=== PATIENT | female | born 1985 | race Caucasian/White ===

== ENCOUNTER 2016-11-04 19:55 | Inpatient (IN) | payer OTHER ==
[~2016-11-04] VITALS: Ht 165.1 cm; Wt 70.3 kg
--- NOTE | ~2016-11-04 | HP ---
Unit #: [id number] #: [id number] Patient: MAL JACK [id number] [place] [address] [id number] I MR#: [id number] NAME: MAL JACK ROOM: [facility]6 Age: 31 Sex: F Admission Date: 11/04/2016 : 1985 Attending Physician: José Antonio Daugherty M.D. Admitting Physician: José Antonio Daugherty M.D. Primary Care Physician: Generic Doctor Not In System HISTORY AND PHYSICAL HISTORY OF PRESENT ILLNESS Mal is a 31 year old admitted to [address] [place] [address] with psychotic behavior. She is religiously preoccupied and believes that she has someone named Osvaldo living in her. PAST MEDICAL HISTORY Nothing significant. PAST SURGICAL HISTORY x2. ALLERGIES No known drug allergies. SOCIAL HISTORY Smokes 1 pack per day. Drinks alcohol on occasion. Admits to snorting OxyContin on occasion and has been using cartom frequently. FAMILY HISTORY Medically noncontributory. REVIEW OF SYSTEMS CONSTITUTIONAL: No fever or chills. HEENT: Denies any sore throat, ear pain or runny nose. CARDIOVASCULAR: Denies chest pain, irregular heart rhythm or palpitations. CHEST: Denies shortness of breath or cough. No hemoptysis. GASTROINTESTINAL: Denies nausea, vomiting, diarrhea or chronic constipation. ENDOCRINE: Denies history of increased thirst or urination. No recent significant weight loss or gain. GENITOURINARY: Denies dysuria, frequency, or hematuria. SKIN: Denies any rashes. HEMATOLOGIC: Denies history of increased bleeding or bruising. MUSCULOSKELETAL: Denies any hot, swollen joints. No generalized muscle pain. NEUROLOGIC: Denies problems with vision or speech. No frequent, severe headaches. No numbness, tingling or weakness in any extremities. Denies loss of bladder or bowel control. CURRENT MEDICATIONS 1. Milk of Magnesia p.r.n. 2. Maalox p.r.n. 3. Tylenol p.r.n. Unit #: [id number] #: [id number] Patient: MAL JACK 4. Nicotine patch 14 mg daily. PHYSICAL EXAMINATION GENERAL: Alert, well-nourished, in no apparent distress. VITAL SIGNS: Blood pressure 110/50, heart rate 94, respirations 16, temperature 98.6. WEIGHT: 155. HEIGHT: 5 feet 5 inches. SKIN: Warm and dry without rash or lesion. HEENT: Normocephalic. TMs not viewed. Oral and nasal passages clear. Conjunctivae clear. PERRLA. EOMs intact. NECK: Supple without lymphadenopathy or thyromegaly. HEART: Regular rate and rhythm without murmur. LUNGS: Clear. ABDOMEN: Soft, nontender. : Not done. EXTREMITIES: No evidence of cyanosis, clubbing or edema. Moves all without focal deficit. NEUROLOGICAL: Grossly within normal limits. Cranial Nerves: II: Visual hassan are intact. III, IV AND : Extraocular movements are intact. Pupils are equal, round and reactive to light. V: Facial sensation is grossly normal. VII: Facial movements and expression are normal. VIII: Auditory acuity grossly intact. IX, X: Uvula is midline. Phonation is normal. XI: Patient shrugs shoulders and turns head normally. XII: Tongue protrudes in the midline. Sensory and Motor Function: Sensory and motor sensation is grossly normal. Motor: moves all extremities well. Coordination: Gait is normal. Deep Tendon Reflexes: Intact. IMPRESSION Psychiatric admission. RECOMMENDATIONS PSYCHIATRIC: Per psychiatrist. MEDICAL: See no contraindication to participate in facility's activities. MEDICAL PROGNOSIS Good. MEDICAL CONDITION Stable. Dictated by... Sherin Multani P.A.-C. for Gretel Serna/sadia TD: 11/05/2016 15:34 JOB #: [id number] Unit #: [id number] #: [id number] Patient: MAL JACK HISTORY AND PHYSICAL Page 1 of 1 X Sherin Multani HISTORY AND PHYSICAL
--- NOTE | ~2016-11-04 | DS ---
Unit #: [id number] #: [id number] [facility] [id number] [facility] [place] [address] [id number] I MR#: [id number] NAME: MAL JACK ROOM: P209 Age: 31 Sex: F Admission Date: 11/04/2016 : 1985 Discharge Date: 11/11/2016 Attending Physician: José Antonio Daugherty M.D. Primary Care Physician: Generic Doctor Not In System DISCHARGE SUMMARY IDENTIFYING DATA Ms. Jack is a 31-year-old single white female with history of mood disorder and psychosis who was brought to the hospital by her family. DISCHARGE DIAGNOSES Psychiatric: Bipolar disorder, most recent episode depressed, recurrent, moderate, with psychosis. Medical: None. Stressors: Moderate psychosocial stressors. HISTORY OF PRESENT ILLNESS Please see initial psychiatric evaluation for details. PAST PSYCHIATRIC HISTORY Please see initial psychiatric evaluation for details. PAST MEDICAL HISTORY Please see initial psychiatric evaluation for details. HOSPITAL COURSE The patient was admitted to the adult psychiatric unit at [facility] renata [facility] and was oriented to the hospital environment. Routine p.r.n. medications were initiated, and she was started back on home medication, Risperdal Klonopin 1 mg twice a day. Meanwhile, she was taking the medications regularly and was tolerating them fairly well and was able to show a decent therapeutic response. ____ depression and psychosis . Will continue treatment on an outpatient . DISCHARGE MEDICATIONS Risperdal 1 mg b.i.d. for depression and psychosis. DISCHARGE CONDITION Stable. PROGNOSIS Fair. Dictated by... José Antonio Daugherty M.D. Unit #: [id number] #: [id number] Patient: MAL JACK IAA/modl TD: 11/20/2016 15:37 JOB #: [id number] DISCHARGE SUMMARY Page 1 of 1 X José Antonio Daugherty MD X DISCHARGE SUMMARY
--- NOTE | ~2016-11-04 | PN ---
Unit #: [id number] #: [id number] Patient: MAL JACK [id number] [facility] [address] [place] [address] [id number] I MR#: [id number] NAME: MAL JACK ROOM: [facility]6 Age: 31 Sex: F Admission Date: 11/04/2016 : 1985 Attending Physician: José Antonio Daugherty M.D. Admitting Physician: José Antonio Daugherty M.D. Primary Care Physician: Generic Doctor Not In System [facility] PROGRESS NOTES DATE 11/06/2016 DISCUSSION Ms. Jack is a 31-year-old white female who was seen today and chart was reviewed and case was discussed with the staff. She had a rough day yesterday with acute psychosis and was yelling and screaming the demons are attacking her and coming out of her body and was showing episode of verbal and physical aggression. Intramuscular injection of antipsychotic had to be given to cut down on her psychosis and to keep her calm. MENTAL STATUS EXAMINATION Young white female who was casually dressed with fair personal hygiene and appears to be in no acute distress or discomfort. She was awake and alert on interaction with intact orientation. Her mood was anxious with congruent affect. Her speech is slow and restricted in content. Her thought processes were disorganized with some looseness of associations and flight of ideas. Her insight and judgement remains significantly impaired. TREATMENT PLAN 1. Will continue on current medications and treatment protocol. Will monitor her response to the medications and make further adjustments as needed. 2. Will continue to follow up. Dictated by... Gretel Morales/sadia TD: 11/06/2016 18:06 JOB #: [id number] Unit #: [id number] #: [id number] Patient: MAL JACK PROGRESS NOTES Page 1 of 1 X José Antonio Daugherty MD PROGRESS NOTE
--- NOTE | ~2016-11-04 | PN ---
Unit #: [id number] #: [id number] Patient: MAL JACK [id number] [facility] [address] [place] [address] [id number] I MR#: [id number] NAME: MAL JACK ROOM: P209 Age: 31 Sex: F Admission Date: 11/04/2016 : 1985 Attending Physician: José Antonio Daugherty M.D. Admitting Physician: José Antonio Daugherty M.D. Primary Care Physician: Kadeem Doctor Not In System [facility] PROGRESS NOTES DATE 11/09/2016 DISCUSSION Ms. Jack is a 31-year-old white female who was seen today and chart was reviewed and case was discussed with the staff. She has been doing fairly well and has been rather calm and cooperative and compliant with treatment recommendations as she has been taking medications and tolerating them fairly well with no reported side effects. MENTAL STATUS EXAMINATION Young white female who was casually dressed with fair personal hygiene, appears to be in no acute distress or discomfort. She was awake and alert on interaction with intact orientation. Her mood was anxious with congruent affect. She denies any suicidal or homicidal ideations. Her insight and judgement remains slightly impaired. TREATMENT PLAN 1. We will continue her on her current medications and treatment protocol. We will monitor her response to the medication and make further adjustments as needed. 2. We will continue to follow up. Dictated by... Gretel Morales/odalis TD: 11/11/2016 03:58 JOB #: [id number] Unit #: [id number] #: [id number] Patient: MAL JACK PROGRESS NOTES Page 1 of 1 X José Antonio Daugherty MD PROGRESS NOTE
--- NOTE | ~2016-11-04 | PN ---
Unit #: [id number] #: [id number] Patient: MAL JACK [id number] [facility] [address] [place] [address] [id number] I MR#: [id number] NAME: MAL JACK ROOM: P122 Age: 31 Sex: F Admission Date: 11/04/2016 : 1985 Attending Physician: José Antonio Daugherty M.D. Admitting Physician: José Antonio Daugherty M.D. Primary Care Physician: Generic Doctor Not In System [facility] PROGRESS NOTES DATE OF SERVICE 11/08/2016 DISCUSSION Ms. Jack is a 31-year-old white female who was seen today. Chart was reviewed and case was discussed with the staff. She has been anxious, withdrawn, and still has been having some persistent hallucinations though her agitation and aggression have been improving as she has been taking the medications on a regular basis. She denies any tolerability issues with the medications. MENTAL STATUS EXAMINATION Young white female who is casually dressed with fair personal hygiene and appears to be in no acute distress or discomfort. She was awake and alert with intact orientation. Her mood is anxious with a congruent affect. She denies any suicidal or homicidal ideations. Her insight and judgment remain slightly impaired. TREATMENT PLAN 1. We will continue her on her current medications and treatment protocol. We will monitor her response to the medications and make further adjustments as needed. 2. We will continue to follow up. Dictated by... José Antonio Daugherty M.D. IAA/bzg TD: 11/08/2016 09:44 JOB #: [id number] Unit #: [id number] #: [id number] Patient: MAL JACK PROGRESS NOTES Page 1 of 1 X José Antonio Daugherty MD X PROGRESS NOTE
--- NOTE | ~2016-11-04 | PN ---
Unit #: [id number] #: [id number] Patient: MAL JACK [id number] [facility] [address] [place] [address] [id number] I MR#: [id number] NAME: MAL JACK ROOM: P122 Age: 31 Sex: F Admission Date: 11/04/2016 : 1985 Attending Physician: José Antonio Daugherty M.D. Admitting Physician: José Antonio Daugherty M.D. Primary Care Physician: Kadeem Doctor Not In System [facility] PROGRESS NOTES DATE OF SERVICE 11/07/2016 DISCUSSION Ms. Jack is a 31-year-old white female who was seen today. Chart was reviewed and case was discussed with the staff. She has been anxious, withdrawn though has not shown any agitation and has had a better day yesterday though still has been exhibiting bizarre behavior with persistent paranoia and delusional behavior though no physical aggression or violent outburst has been reported. She has been taking the medications and tolerating them fairly well with no reported side effects. MENTAL STATUS EXAMINATION Young white female who is casually dressed with fair personal hygiene, appears to be in no acute distress or discomfort. The patient was awake and alert with intact orientation. Her mood is anxious with congruent affect. She denies any suicidal or homicidal ideations. Her thought processes were disorganized with some looseness of associations, paranoid ideations, and delusional behavior. Her insight and judgment remain significantly impaired. TREATMENT PLAN 1. We will continue her on her current medications and treatment protocol. We will monitor her response to the medications and make further adjustments as needed. 2. We will continue to follow up. Dictated by... Gretel Morales/raven TD: 11/07/2016 09:12 JOB #: [id number] Unit #: [id number] #: [id number] Patient: MAL JACK PROGRESS NOTES Page 1 of 1 X José Antonio Daugherty MD PROGRESS NOTE
--- NOTE | ~2016-11-04 | PA ---
Unit #: [id number] #: [id number] Patient: MAL JACK [id number] [place] [address] [id number] I MR#: [id number] NAME: MAL JACK ROOM: P131 Age: 31 Sex: F Admission Date: 11/04/2016 : 1985 Date of Assessment: 11/05/2016 Attending Physician: José Antonio Daugherty M.D. Admitting Physician: José Antonio Daugherty M.D. Primary Care Physician: Generic Doctor Not In System PSYCHIATRIC ASSESSMENT DATE OF SERVICE 11/05/2016. IDENTIFYING DATA Ms. Jack is a 31-year-old single white female, who is a resident of [place], [place], and was self-referred to the hospital on a voluntary basis accompanied by her mother. CHIEF COMPLAINT "I'm hearing voices." HISTORY OF PRESENT ILLNESS Ms. Jack is a 31-year-old white female, who presented to the hospital with mother for stating that she has been hearing voices of a demon and "they respond to my thought processes and I want them out of my body. I'm not afraid to them. I see them all. They all look different. They look like people with white eyes." The patient denies any suicidal or homicidal ideation. The patient reports acute psychosis with auditory and visual hallucinations and paranoid ideations and was seen to be disorganized and agitated and irritable and as such, recommendation for inpatient level of care for safety and stabilization was made and the patient was transferred to us. SUBSTANCE ABUSE HISTORY The patient reports history of alcohol and opioids and kratom abuse and more recently, she has been using kratom that she has been buying on [id number] on regular basis and reports that she has not used any other form of opioids in a year that she used to do OxyContin before. PAST PSYCHIATRIC HISTORY The patient reports history of chemical dependency rehab in the past. Review of the medical records indicate currently she is not active in any treatment program, is not seeing a psychiatrist, and not taking any psychotropic medications. PAST MEDICAL HISTORY The patient's medical history is insignificant. ALLERGIES No known medication allergies. CURRENT MEDICATIONS None. Unit #: [id number] #: [id number] Patient: MAL JACK PERSONAL AND SOCIAL HISTORY A 31-year-old white female, who reports that she lives at home with her 4 children along with her mother and father and has fairly decent social support system. MENTAL STATUS EXAMINATION Young white female, who was casually dressed with fair personal hygiene, appears to be in no acute distress or discomfort. She was awake and alert on interaction with intact orientation to time, place, and person. Her mood was anxious and depressed with a congruent affect. Her speech was slow and restricted in content. Her thought processes were disorganized with some looseness of associations and paranoid ideations and auditory hallucinations and visual hallucinations. Her insight and judgment remain significantly impaired. DIAGNOSTIC IMPRESSION Psychiatric: Major depressive disorder, recurrent, moderate, with psychosis; opioid abuse, moderate. Medical: None. Stressors: Moderate psychosocial stressors. TREATMENT PLAN 1. The patient has presented with history of mood disorder and has been decompensating and will need inpatient hospitalization for safety and stabilization. We will start her back on her home medications. We will adjust the medications and monitor response. 2. Supportive therapy was provided to the patient. 3. Safe, structured, and nourishing environment will be reported. ESTIMATED LENGTH OF STAY 5 to 7 days. ABILITY TO HELP SELF Limited. WILLINGNESS TO HELP SELF The patient appears to be willing to help self. STRENGTHS 1. Communicative. 2. Cooperative. PROBLEMS 1. Chronic dysphoric symptoms. 2. Chronic chemical dependency. 3. Poor social support system. DISCHARGE CRITERIA This will be contingent upon the patient's ability to show resolution of her depression and psychosis as well as ability to stay safe to herself, particularly after discharge from the hospital. Dictated by... Gretel Morales/renetta Unit #: [id number] #: [id number] Patient: MAL JACK TD: 11/05/2016 07:55 JOB #: [id number] PSYCHIATRIC ASSESSMENT Page 1 of 1 X José Antonio Daugherty MD PSYCHIATRIC ASSESSMENT
--- NOTE | ~2016-11-04 | PN ---
Unit #: [id number] #: [id number] Patient: MAL JACK [id number] [facility] [address] [place] [address] [id number] I MR#: [id number] NAME: MAL JACK ROOM: P209 Age: 31 Sex: F Admission Date: 11/04/2016 : 1985 Attending Physician: José Antonio Daugherty M.D. Admitting Physician: José Antonio Daugherty M.D. Primary Care Physician: Generic Doctor Not In System [facility] PROGRESS NOTES DATE OF SERVICE 11/10/2016 DISCUSSION Ms. Jack is a 31-year-old white female who was seen today and chart was reviewed and case was discussed with the staff. She has been anxious, withdrawn and rather seclusive to herself. Meanwhile, she has been cooperative with treatment recommendations as she has been taking the medications and tolerating them fairly well with no reported side effects. Patient denies any suicidal or homicidal ideation and as such we will consider doing discharge planning tomorrow. Dictated by... Gretel Morales/odalis TD: 11/12/2016 05:10 JOB #: [id number] [facility] PROGRESS NOTES Page 1 of 1 X José Antonio Daughrety MD PROGRESS NOTE
[2016-11-05 09:43] LABS: BASOPHIL% 0.5 % (0-2.5); EOSINOPHIL% 0.7 % (0.0-7.0); HEMATOCRIT 44.1 % (35.0-45.0); HEMOGLOBIN 14.9 gm/dL (12.0-16.0); LYMPHOCYTE# 1.6 X10e3 (1.0-3.5); LYMPHOCYTE% 26.1 % (17.0-45.0); MEAN CELL VOLUME 93.2 FL (83-96); MEAN CORPUSCULAR HEMOGLOBIN 31.4 PG (28-34); MEAN CORPUSCULAR HGB CONC 33.8 g/dL (30-36); MEAN PLATELET VOLUME 9.5 FL (6.5-11.5); MONOCYTE# 0.4 X10e3 (0-1.0); MONOCYTE% 6.4 % (3.0-12.0); NEUTROPHIL# 4.1 X10e3 (1.5-7.1); NEUTROPHIL% 66.3 % (40-75); PLATELET COUNT 203 X10e3 (140-420); RED BLOOD COUNT 4.74 X10e (3.90-5.30); RED CELL DISTRIBUTION WIDTH 13.1 % (11.0-15.5); WHITE BLOOD COUNT 6.2 X10e3 (4.0-10.5)
[2016-11-05 09:47] LABS: DIFF IND NO
[2016-11-05 10:14] LABS: CALCIUM SERUM 9.8 mg/dL (8.4-10.2); GLOM FILT RATE Estimated 76.1 mL/min (>60); POTASSIUM 3.9 mmol/L (3.5-5.1); PROTEIN TOTAL SERUM 7.3 g/dL (6.0-8.3)
[2016-11-11 10:41] LABS: URINE APPEARANCE CLEAR; URINE BILIRUBIN NEG (NEG); URINE BLOOD NEG (NEG); URINE COLOR YELLOW; URINE GLUCOSE NEG (NEG); URINE KETONE NEG (NEG); URINE LEUKOCYTE ESTERASE NEG (NEG); URINE NITRATE NEG (NEG); URINE PROTEIN NEG (NEG); URINE SPECIFIC GRAVITY 1.019 (1.003-1.035); URINE UROBILINOGEN 0.2 MG/DL (NEG)
[2016-11-11 10:51] LABS: AMPHETAMINE NEG (NEG); BARBITURATES NEG (NEG); BENZODIAZEPINES NEG (NEG); COCAINE NEG (NEG); MARIJUANA NEG (NEG); OPIATES NEG (NEG); TRICYCLIC ANTIDEPRESSANTS NEG (NEG); U METHADONE NEG (NEG)
== END 2016-11-11 10:01 | DRG 885 ==
LOC: P1S 21:32 → P2S 11-08 17:26
PROVIDERS: Psychiatry & Neurology Psychiatry
DX: F33.3 Major depressive disorder, recurrent, severe with psychotic symptoms (principal); F11.20 Opioid dependence, uncomplicated; F17.200 Nicotine dependence, unspecified, uncomplicated
CPT/HCPCS: 80053; 80307; 81003; 84703; 85025